=== PATIENT | male | born 1985 | race Caucasian/White ===

== ENCOUNTER 2017-02-15 09:43 | Emergency (ER) | payer OTHER ==
[2017-02-15 10:03] VITALS: O2SAT 94
[2017-02-15] MEDS ORDERED: NS 1,000 ML IV ONE (10:09)
[2017-02-15] MEDS ORDERED: ONDANSETRON 4 MG/2 ML VIAL IVP ONE (10:10)
--- NOTE | 2017-02-15 10:22 | EDPHY ---
H & P Stated Complaint: n/v for 12 hrs/?may have lymes disease Time Seen by Provider: 02/15/17 10:08 HPI/ROS: CHIEF COMPLAINT: Nausea vomiting times 12 hours HISTORY OF PRESENT ILLNESS: 31-year-old male arrives via private vehicle complaining of nausea, vomiting for the past 12 hours after eating a large amount of watermelon. No abdominal pain. Last emesis was 1 hour ago however he complains of continued nausea. No testicular pain. No urinary abnormality. Bowel movements normal. No melena or hematochezia. He would also like me to evaluate a new nontender lesion on his right hemiscrotum which has been present for the past 1 week. No trauma. He also notes a history of possible Lyme disease. He is visiting [place] for the next 1 month and returns to [place] where he specifically move so that he could established relationship with a physician who was a Lyme disease specialist. He is complaining of ongoing fatigue and " stomach sensitivity PRIMARY CARE PROVIDER: None locally REVIEW OF SYSTEMS: A ten point review of systems was performed and is negative with the exception of the items mentioned in the HPI PAST MEDICAL & SURGICAL HISTORY: Possible Lyme disease SOCIAL HISTORY: lives in [place] PHYSICAL EXAM (Prior to examination, patient consented to physical exam, hands were washed and my usual and customary physical exam procedures followed) 1) GENERAL: Well-developed, well-nourished, alert and oriented. Appears nontoxic 2) HEAD: Normocephalic, atraumatic 3) HEENT: Pupils equal, round, reactive to light bilaterally. Sclera anicteric. Nasopharynx, oropharynx, clear, no lesions. Dry mucous membranes 4) NECK: Full range of motion, no meningeal signs. 5) LUNGS: Clear auscultation bilaterally, no wheezes, no rhonchi, no retractions. 6) HEART: Regular rate and rhythm, no murmur, no heave, no gallop. 7) ABDOMEN: No guarding, no rebound, no focal tenderness, negative McBurney's, negative Khan's, negative Rovsing's, negative peritoneal sign, I am unable to elicit any abdominal pain on exam. Flap. 8) MUSCULOSKELETAL: Moving all extremities, no focal areas of tenderness, no obvious trauma. No peripheral edema or discoloration. 9) BACK: No CVA tenderness, no midline vertebral tenderness, no fluctuance, no step-off, no obvious trauma, no visual or palpable abnormality. 10) SKIN: No rash, no petechiae. 11) (with male nurse Bishnu at bedside): On the right hemiscrotum he has a nontender 1 cm cystic like nodule. Does not appear to involve the testicle. Testicles are nontender with bilateral cremasteric reflex present. There is no erythema. No signs of Javi's gangrene. No fetid odor DIFFERENTIAL DIAGNOSIS: My differential diagnosis includes, but is not limited to, acute appendicitis, acute cholecystitis, bowel obstruction, acute pancreatitis, testicular torsion, gastritis . The patient understands that this diagnosis is provisional and can never be 100% accurate. This is a partial list of diagnoses considered. These considerations are based on history , physical exam, past history and reassessment. - Personal History Current Tetanus/Diphtheria Vaccine: Yes Tetanus Vaccine Date: 2008 - Medical/Surgical History Hx Asthma: No Hx Chronic Respiratory Disease: No Hx Diabetes: No Hx Cardiac Disease: No Hx Renal Disease: No Hx Cirrhosis: No Hx Alcoholism: No Hx HIV/AIDS: No Hx Splenectomy or Spleen Trauma: No Other PMH: ANkle surgery, tonselectomy, chronic infection - Social History Smoking Status: Never smoked Constitutional: Initial Vital Signs Temperature (C) 36.4 C 02/15/17 10:00 Heart Rate 94 02/15/17 10:00 Respiratory Rate 20 02/15/17 10:00 Blood Pressure 124/77 H 02/15/17 10:00 O2 Sat (%) 94 02/15/17 10:00 O2 Delivery Mode Room Air Allergies/Adverse Reactions: amoxicillin [Amoxicillin] Allergy (Verified 02/15/17 09:45) cefaclor [From Ceclor] Allergy (Verified 02/15/17 09:45) clindamycin [Clindamycin] Allergy (Verified 02/15/17 09:45) erythromycin base [Erythromycin Base] Allergy (Verified 02/15/17 09:45) Sulfa (Sulfonamide Antibiotics) Allergy (Verified 02/15/17 09:45) Home Medications: Medication Instructions Recorded Herbal Supplements 02/15/17 Ondansetron Odt [Zofran Odt] 4 mg PO Q4PRN PRN #10 tab 02/15/17 Medical Decision Making ED Course/Re-evaluation: Care and management in consultation with secondary supervising physician Dr Rowan . Regarding the patient's right hemiscrotum lesion, I think that testicular torsion, Javi's gangrene, cellulitis, abscess, less than likely. This appears to be superficial, cutaneous to the scrotum only. I do not think that incision and drainage, ultrasound currently indicated. Cannot rule out malignancy. Recommend follow up on outpatient basis observation. . He was re-evaluated with serial exams most recently at 11:42 a.m. at which point he is feeling improvement. His nausea is resolved after IV Zofran. I re- examined his abdomen remains flat soft no guarding or rebound no McBurney's point pain. I think that acute surgical abdominal pathology, acute appendicitis , acute pancreatitis, testicular torsion, less than likely in this patient. He notes ongoing GI symptoms. I have given him it Gastroenterology referral and my usual customary abdominal precautions instructions. I do not think that imaging indicated at this time. - Data Points Laboratory Results: Laboratory Results 02/15/17 10:27 02/15/17 10:27 02/15/17 02/15/17 10:27 10:27 WBC 11.95 10^3/uL H 10^3/uL (3.80-9.50) RBC 4.94 10^6/uL 10^6/uL (4.40-6.38) Hgb 15.0 g/dL g/dL (13.7-17.5) Hct 44.5 % % (40.0-51.0) MCV 90.1 fL fL (81.5-99.8) MCH 30.4 pg pg (27.9-34.1) MCHC 33.7 g/dL g/dL (32.4-36.7) RDW 13.8 % % (11.5-15.2) Plt Count 232 10^3/uL 10^3/uL (150-400) MPV 10.5 fL fL (8.7-11.7) Neut % (Auto) 85.7 % H % (39.3-74.2) Lymph % (Auto) 10.6 % L % (15.0-45.0) Union % (Auto) 2.9 % L % (4.5-13.0) Eos % (Auto) 0.0 % L % (0.6-7.6) Baso % (Auto) 0.4 % % (0.3-1.7) Nucleat RBC Rel Count 0.0 % % (0.0-0.2) Absolute Neuts (auto) 10.23 10^3/uL H 10^3/uL (1.70-6.50) Absolute Lymphs (auto) 1.27 10^3/uL 10^3/uL (1.00-3.00) Absolute Monos (auto) 0.35 10^3/uL 10^3/uL (0.30-0.80) Absolute Eos (auto) 0.00 10^3/uL L 10^3/uL (0.03-0.40) Absolute Basos (auto) 0.05 10^3/uL 10^3/uL (0.02-0.10) Absolute Nucleated RBC 0.00 10^3/uL 10^3/uL (0-0.01) Immature Gran % 0.4 % % (0.0-1.1) Immature Gran # 0.05 10^3/uL 10^3/uL (0.00-0.10) Sodium 138 mEq/L mEq/L (134-144) Potassium 4.2 mEq/L mEq/L (3.5-5.2) Chloride 104 mEq/L mEq/L (97-110) Carbon Dioxide 17 mEq/l L mEq/l (22-31) Anion Gap 17 mEq/L H mEq/L (8-16) BUN 16 mg/dL mg/dL (7-23) Creatinine 1.1 mg/dL mg/dL (0.7-1.3) Estimated GFR > 60 Glucose 81 mg/dL mg/dL (70-100) Calcium 9.8 mg/dL mg/dL (8.5-10.4) Total Bilirubin 1.2 mg/dL mg/dL (0.1-1.4) Conjugated Bilirubin 0.3 mg/dL mg/dL (0.0-0.5) Unconjugated Bilirubin 0.9 mg/dL mg/dL (0.0-1.1) AST 37 IU/L IU/L (17-59) ALT 53 IU/L IU/L (21-72) Alkaline Phosphatase 68 IU/L IU/L (38-126) Total Protein 7.4 g/dL g/dL (6.3-8.2) Albumin 4.4 g/dL g/dL (3.5-5.0) Lipase 112.0 IU/L IU/L (23-300) Medications Given: Discontinued Medications Sodium Chloride (Ns) 1,000 mls @ 0 mls/hr IV ONCE ONE PRN Reason: Wide Open Stop: 02/15/17 10:10 Last Admin: 02/15/17 10:55 Dose: 1,000 mls Ondansetron HCl (Zofran) 4 mg IVP EDNOW ONE Stop: 02/15/17 10:11 Last Admin: 02/15/17 10:55 Dose: 4 mg Departure - Departure Disposition: Home, Routine, Self-Care Clinical Impression: Nausea and vomiting Qualifiers: Vomiting type: unspecified Vomiting Intractability: non-intractable Qualified Code(s): R11.2 - Nausea with vomiting, unspecified Condition: Good Instructions: Acute Nausea and Vomiting (ED) Additional Instructions: Seek immediate medical attention if you develop new or worsening symptoms, if you develop fevers, chills, inability to tolerate oral intake or any other symptoms that concerns you. Referrals: Marcellus Paulino MD [Medical Doctor] - 5-7 days, call for appt. ( Dr. Paulino is a b2b outside sales representative) Prescriptions: Ondansetron Odt [Zofran Odt] 4 mg PO Q4PRN PRN #10 tab PRN Reason: Nausea
[2017-02-15 10:40] LABS: % IMMATURE GRANULYOCYTES 0.4 % (0.0-1.1); ABSOLUTE IMMATURE GRANULOCYTES 0.05 10^3/uL (0.00-0.10); ADD DIFF? NO; ADD MORPH? NO; ADD SCAN? NO; ATYPICAL LYMPHOCYTE FLAG 0 (0-99); FRAGMENT RBC FLAG 0 (0-99); HEMATOCRIT 44.5 % (40.0-51.0); LEFT SHIFT FLG 0 (0-99); LIPEMIA HEMOLYSIS FLAG 80 (0-99); MEAN CELL HEMOGLOBIN 30.4 pg (27.9-34.1); MEAN CELL HEMOGLOBIN CONCENTR. 33.7 g/dL (32.4-36.7); MEAN CELL VOLUME 90.1 fL (81.5-99.8); MEAN PLATELET VOLUME 10.5 fL (8.7-11.7); PLATELET CLUMPS FLAG 0 (0-99); PLATELET COUNT 232 10^3/uL (150-400); RED BLOOD CELL COUNT 4.94 10^6/uL (4.40-6.38); RED CELL DISTRIBUTION WIDTH 13.8 % (11.5-15.2)
[2017-02-15 11:04] LABS: ALANINE AMINOTRANSFERASE 53 IU/L (21-72); ALBUMIN 4.4 g/dL (3.5-5.0); ALKALINE PHOSPHATASE 68 IU/L (38-126); ANION GAP 17 mEq/L (8-16); ASPARTATE AMINOTRANSFERASE 37 IU/L (17-59); BILIRUBIN,TOTAL 1.2 mg/dL (0.1-1.4); BILIRUBIN-CONJUGATED 0.3 mg/dL (0.0-0.5); BILIRUBIN-UNCONJUGATED 0.9 mg/dL (0.0-1.1); CALCIUM 9.8 mg/dL (8.5-10.4); CARBON DIOXIDE 17 mEq/l (22-31); CHLORIDE 104 mEq/L (97-110); CREATININE 1.1 mg/dL (0.7-1.3); GLOMERULAR FILTRATION RATE > 60; GLUCOSE 81 mg/dL (70-100); POTASSIUM 4.2 mEq/L (3.5-5.2); SODIUM 138 mEq/L (134-144); TOTAL PROTEIN 7.4 g/dL (6.3-8.2)
[2017-02-15 12:21] VITALS: BP 122/78; PULSE 70; RESP 14; TEMP 98.4
== END 2017-02-15 12:20 | disposition home or self-care (01) ==
DX: R11.2 Nausea with vomiting, unspecified (principal)
CPT/HCPCS: 96374; J2405